=== PATIENT | male | born 1990 | race Hispanic/Latino ===

== ENCOUNTER 2017-06-14 18:28 | Emergency (ER) | payer OTHER ==
[2017-06-14 19:54] LABS: #Basophils 0.1 thou/uL (0.0-0.2); #Lymphocytes 1.7 thou/uL (1.20-3.40); #Monocytes 0.5 thou/uL (0.11-0.59); #Neutrophils 6.1 thou/uL (1.40-6.50); %Basophils 0.8 % (0.0-1.0); %Eosinophils 0.5 % (0.0-10.0); %Lymphocytes 19.7 % (21.0-51.0); Mean Platelet Volume 7.2 fL (7.4-10.4); Red Blood Cell (RBC) Count 4.09 mill/uL (4.70-6.10); White Blood Cell (WBC) Count 8.4 thou/uL (4.8-10.8)
[2017-06-14 20:02] LABS: ALT (SGPT) 14 U/L (8-55); AST (SGOT) 23 U/L (5-34); Alkaline Phosphatase 84 U/L (40-150); Anion Gap 11 mmol/L (10-20); BUN (Urea Nitrogen) 9 mg/dL (8.9-20.6); Bilirubin, Total 0.5 mg/dL (0.2-1.2); Calc. Creatinine Clearance 0 mL/min (70-130); Calcium 9.3 mg/dL (7.8-10.44); Carbon Dioxide 28 mmol/L (22-29); Chloride 99 mmol/L (98-107); Estimated GFR-MDRD Greater than 90; Globulin 2.5 g/dL (2.4-3.5); Protein, Total 6.6 g/dL (6.0-8.3)
[2017-06-14 21:26] LABS: Amphetamine Not Detected (NotDetected); Methadone Not Detected (NotDetected); Methamphetamine Not Detected (NotDetected)
--- NOTE | 2017-06-14 21:54 | CT ---
CT BRAIN NONCONTRAST: DATE: 06/14/2017 HISTORY: A 27-year-old male, status post seizure. COMPARISON: 09/17/2012 FINDINGS: There is midline and right paramedian frontal old craniotomy changes. Elongated low attenuation flu id density lesion involving the anterior portion of the corpus callosum, between the bilateral front al horns and between the bodies of the lateral ventricles. Uncertain whether this represents a cyst ic lesion or encephalomalacia/gliosis. No obstructive hydrocephalus. Williams cisterna magna. No acut e intraaxial or extraaxial hemorrhage. No mass effect, midline shift, or other extraaxial fluid col lection. High attenuation lesion in the right upper parietal scalp, similar to the previous CT. Th is could be a chronic scar or recurrent acute traumatic scalp contusion. No acute calvarial fractur e. The bilateral tympanomastoid cavities and upper portions of the paranasal sinuses are grossly cl ear. No interval change overall since 2012. IMPRESSION: 1. Old frontal craniotomy changes. 2. Thin, chronic, hypodense lesion between the lateral ventricles. 3. No acute intracranial findings, and no interval change overall since 09/17/2012. ABIEL Smiley POS: DONALD
== END 2017-06-14 21:35 | disposition home or self-care (01) ==
LOC: ERS 18:28
DX: R56.9 Unspecified convulsions (principal); Z79.899 Other long term (current) drug therapy
CPT/HCPCS: 36415; 70450; 80053; 80306; 84146; 85025; 96360

== ENCOUNTER 2021-10-12 12:30 | Outpatient (CLI) | payer OTHER | END 2021-10-12 12:31 | disposition home or self-care (01) | LOC: EEG 12:30 | PROVIDERS: ATTEND Psychiatry & Neurology Neurology | DX: G40.219 Localization-related (focal) (partial) symptomatic epilepsy and epileptic syndromes with complex partial seizures, intractable, without status epilepticus (principal) | CPT/HCPCS: 95816; 95957 ==